=== PATIENT | female | born 1940 | race Caucasian/White ===

== ENCOUNTER 2017-01-30 19:35 | Emergency (ER) | payer MEDICARE, BC ==
[~2017-01-30 19:35] MED LIST: ASA CHILDREN'S81 MG PO; CARDURA DPS2 MG PO; COUMADIN1 MG PO; COZAAR DPS50 MG PO; CYMBALTA30 MG PO; GLUCOPHAGE-DPS500 MG PO; HUMALOG100 UNIT/1 SQ; LASIX DPS20 MG PO; LIPITOR DPS40 MG PO; NORVASC DPS10 MG PO; NOVOLIN-N,100 UNITS/ SQ; TENORMIN DPS50 MG PO
--- NOTE | 2017-02-14 15:51 | ER ---
ADMIT: 01/30/2017 RM/LOC: ER [facility] MR#: [id number] [facility] [id number] [address] [place] [address] Emergency Room Report SEX: F AGE: 76 : 1940 DATE: 01/30/2017 SUBJECTIVE: A 76-year-old, who accidentally took too much of her NovoLog, came in asymptomatic, but concerned about hypoglycemia tonight. Multiple glucose levels were checked throughout her stay. Final one was 121 after she had been given cookies, sandwich, and a small pop. DISCHARGE DIAGNOSIS: Accidental overdose of insulin. Duke Dale MD/ modl JOB #: [id number] CC: Hrenán Saucedo MD, Attending Physician Hernán Worthy MD, Family Physician
== END 2017-01-30 21:50 | disposition home or self-care (01) ==
LOC: ER 19:35
DX: T38.3X1A Poisoning by insulin and oral hypoglycemic [antidiabetic] drugs, accidental (unintentional), initial encounter (principal); I10 Essential (primary) hypertension; E11.9 Type 2 diabetes mellitus without complications; Z90.49 Acquired absence of other specified parts of digestive tract; Z90.89 Acquired absence of other organs; Z79.4 Long term (current) use of insulin; Z79.01 Long term (current) use of anticoagulants; Z79.82 Long term (current) use of aspirin; Z79.899 Other long term (current) drug therapy